=== PATIENT | female | born 1990 | race Caucasian/White ===

== ENCOUNTER → 2021-05-01 | Outpatient (CLI) | payer BC, OTHER | LOC: RT 15:31 | DX: R00.2 Palpitations (principal) ==

== ENCOUNTER → 2021-05-01 | Outpatient (CLI) | payer BC, OTHER | LOC: HEART 5 14:30 | DX: R06.02 Shortness of breath (principal); I07.1 Rheumatic tricuspid insufficiency | CPT/HCPCS: 93306 ==